=== PATIENT | female | born 1970 | race Caucasian/White ===

== ENCOUNTER 2016-05-26 20:33 | Inpatient (IN) | payer OTHER ==
[~2016-05-26] VITALS: Ht 175.3 cm; Wt 119.9 kg
[2016-05-26 21:23] LABS: HEMOGLOBIN 11.9 gm/dl (12.3-15.3); RED BLOOD COUNT 4.33 M/UL (4.00-5.10); WHITE BLOOD COUNT 10.5 K/UL (4.5-11.0)
[2016-05-27] MEDS ORDERED: HYDROCHLOROTHIA25 MG PO (02:22)
[2016-05-27] MEDS ORDERED: SINGULAIR10 MG PO (02:23)
[2016-05-27] MEDS ORDERED: CETIRIZINE HCL10 MG PO (02:23)
[2016-05-27] MEDS ORDERED: ALBUTEROL2.5 MG/3 M NEB (02:24)
[2016-05-27] MEDS ORDERED: ATROVENT INH S2.5 ML NEB (02:25)
[2016-05-27] MEDS ORDERED: PROVENTIL HFA 61 INH INH (02:26)
[2016-05-27] MEDS ORDERED: AMLODIPINE BESY10 MG PO (02:26)
[2016-05-27] MEDS ORDERED: BRILINTA90 MG PO (02:27)
[2016-05-27] MEDS ORDERED: DEXILANT60 MG PO (02:28)
[2016-05-27] MEDS ORDERED: RANITIDINE HCL300 MG PO (02:28)
[2016-05-27] MEDS ORDERED: LIPITOR TAB 2020 MG PO (02:28)
[2016-05-27 08:48] LABS: HEMOGLOBIN 10.1 gm/dl (12.3-15.3)
[2016-05-27 08:52] LABS: RED BLOOD COUNT 3.8 M/UL (4.00-5.10); WHITE BLOOD COUNT 7.3 K/UL (4.5-11.0)
[2016-05-28 07:06] LABS: HEMOGLOBIN 9.3 gm/dl (12.3-15.3); RED BLOOD COUNT 3.45 M/UL (4.00-5.10)
[2016-05-28 07:09] LABS: WHITE BLOOD COUNT 4.7 K/UL (4.5-11.0)
[2016-05-28 07:21] LABS: BUN/CREATININE RATIO 10 (0-10)
[2016-05-28] MEDS ORDERED: ASPIR 8181 MG PO (12:42)
[2016-05-28] MEDS ORDERED: PROTONIX 40 MG40 M1 PO (12:45)
[2016-05-28] MEDS ORDERED: PEPCID40 MG PO (12:45)
[2016-05-28] MEDS ORDERED: CEFUROXIME250 MG PO (12:47)
== END 2016-05-28 13:28 | disposition home or self-care (01) | DRG 690 ==
LOC: ER1 20:33 → M/S 23:30 → ZEROF 23:30 → M/S 05-27 01:24
PROVIDERS: Emergency Medicine; Physician Assistant; ADMIT Internal Medicine
DX: N10 Acute pyelonephritis (principal); E87.2 Acidosis; N17.9 Acute kidney failure, unspecified; E87.6 Hypokalemia; D64.9 Anemia, unspecified; J44.9 Chronic obstructive pulmonary disease, unspecified; I25.10 Atherosclerotic heart disease of native coronary artery without angina pectoris; E78.5 Hyperlipidemia, unspecified; K21.9 Gastro-esophageal reflux disease without esophagitis; K57.90 Diverticulosis of intestine, part unspecified, without perforation or abscess without bleeding; J30.9 Allergic rhinitis, unspecified; F17.200 Nicotine dependence, unspecified, uncomplicated; Z95.5 Presence of coronary angioplasty implant and graft; Z28.21 Immunization not carried out because of patient refusal; Z79.899 Other long term (current) drug therapy; Z88.8 Allergy status to other drugs, medicaments and biological substances; Z98.51 Tubal ligation status; Z98.890 Other specified postprocedural states; Z82.49 Family history of ischemic heart disease and other diseases of the circulatory system
CPT/HCPCS: 36415; 80048; 80053; 81001; 83605; 83690; 83735; 84132; 84703; 85025; 85027; 87040; 87086; 93005; 94640; 94664; 96361; 96365; 96375; 99284; G0378; J0696; J2270; J2405; J7030; J7050

== ENCOUNTER → 2016-06-13 | Outpatient (CLI) | payer OTHER ==
[~2016-06-13] MED LIST: ALBUTEROL2.5 MG/3 M NEB; AMLODIPINE BESY10 MG PO; ASPIR 8181 MG PO; ATROVENT INH S2.5 ML NEB; BRILINTA90 MG PO; CEFUROXIME250 MG PO; CETIRIZINE HCL10 MG PO; DEXILANT60 MG PO; HYDROCHLOROTHIA25 MG PO; LIPITOR TAB 2020 MG PO; NITROSTAT0.4 MG SL; PEPCID40 MG PO; PROTONIX 40 MG40 M1 PO; PROVENTIL HFA 61 INH INH; RANITIDINE HCL300 MG PO; SINGULAIR10 MG PO; VITAMIN D 11000 UNIT PO; ZANTAC150 MG PO
== END ==
LOC: HEART 5 07:07
DX: I25.10 Atherosclerotic heart disease of native coronary artery without angina pectoris (principal); R07.9 Chest pain, unspecified; E78.00 Pure hypercholesterolemia, unspecified; I10 Essential (primary) hypertension; R06.02 Shortness of breath
CPT/HCPCS: 78452; A9502

== ENCOUNTER → 2016-07-05 | Outpatient (CLI) | payer OTHER ==
[2016-07-05 10:24] LABS: HEMOGLOBIN 12.5 gm/dl (12.3-15.3); RED BLOOD COUNT 4.57 M/UL (4.00-5.10); WHITE BLOOD COUNT 8.4 K/UL (4.5-11.0)
== END ==
LOC: LAB 09:40
PROVIDERS: Internal Medicine Interventional Cardiology
DX: Z01.818 Encounter for other preprocedural examination (principal)
CPT/HCPCS: 36415; 80048; 85025; 85610; 85730; 93005

== ENCOUNTER 2016-07-06 07:04 | Outpatient (CLI) | payer OTHER ==
[~2016-07-06] VITALS: Ht 172.7 cm; Wt 112.9 kg
[~2016-07-06 07:04] MED LIST changes: -NITROSTAT0.4 MG SL; -VITAMIN D 11000 UNIT PO; -ZANTAC150 MG PO
[2016-07-06] MEDS ORDERED: NITROSTAT0.4 MG SL (08:06)
[2016-07-06] MEDS ORDERED: SINGULAIR10 MG PO (08:06)
[2016-07-06] MEDS ORDERED: ZANTAC150 MG PO (13:27)
[2016-07-06] MEDS ORDERED: VITAMIN D 11000 UNIT PO (13:28)
--- NOTE | 2016-07-06 18:16 | NUR ---
1315 RECEIVED TO 2110 FROM [employer]
--- NOTE | 2016-07-06 18:41 | NUR ---
1538 RIGHT GROIN SHEATH PULLED BY JANET RYDER RN
[2016-07-07 04:18] LABS: HEMOGLOBIN 11.4 gm/dl (12.3-15.3); RED BLOOD COUNT 4.25 M/UL (4.00-5.10); WHITE BLOOD COUNT 8.3 K/UL (4.5-11.0)
[2016-07-07 04:34] LABS: BUN/CREATININE RATIO 17 (0-10)
== END 2016-07-07 10:40 | disposition home or self-care (01) ==
LOC: CATH 07:04 → PROG CARE 13:31 → CATH 13:31 → PROG CARE 13:32 → CATH 07-07 10:40 → PROG CARE 07-07 10:40
PROVIDERS: Internal Medicine Interventional Cardiology
PROC: 027034Z Dilation of Coronary Artery, One Artery with Drug-eluting Intraluminal Device, Percutaneous Approach (ICD-10-PCS; principal; 2016-07-06)
PROC: 4A023N7 Measurement of Cardiac Sampling and Pressure, Left Heart, Percutaneous Approach (ICD-10-PCS; 2016-07-06)
PROC: B2111ZZ Fluoroscopy of Multiple Coronary Arteries using Low Osmolar Contrast (ICD-10-PCS; 2016-07-06)
PROC: B2131ZZ Fluoroscopy of Multiple Coronary Artery Bypass Grafts using Low Osmolar Contrast (ICD-10-PCS; 2016-07-06)
DX: I25.119 Atherosclerotic heart disease of native coronary artery with unspecified angina pectoris (principal); I10 Essential (primary) hypertension; Z87.891 Personal history of nicotine dependence; E78.5 Hyperlipidemia, unspecified; E66.9 Obesity, unspecified; Z68.37 Body mass index [BMI] 37.0-37.9, adult; J44.9 Chronic obstructive pulmonary disease, unspecified
CPT/HCPCS: 36415; 80048; 82962; 85027; 85347; 93571; 94664; C1725; C1769; C1874; C1887; C9600; J0153; J0583; J1644; J2250; J3010; J7030; Q0163; Q9963

== ENCOUNTER → 2020-04-08 | Outpatient (CLI) | payer OTHER ==
[~2020-04-08] MED LIST changes: +AMLODIPINE BESYL5 MG PO; +BREO ELLIPTA 11 EACH INH; +BREO ELLIPTA 200/25 INH; +COREG6.25 MG PO; +DESYREL 50 MG T50 MG PO; +IMDUR ER TAB 3030 MG PO; +IPRAT-ALBUT 0.5-3 ML INH; +K-DUR TAB 20 M20 MEQ PO; +NITROSTAT0.4 MG SL; +OXYGEN INH; +PRILOSEC OTC20 MG PO; +PRINIVIL20 MG PO; +PROAIR HFA8.5 GM INH; +TOPROL XL25 MG PO; +TYLENOL 325MG325 MG PO; +VITAMIN D 11000 UNIT PO; +ZANTAC150 MG PO; +ZANTAC300 MG PO; +ZESTRIL 40 MG T40 MG PO; +ZOFRAN ODT 4 MG4 MG SL; +ZOFRAN ODT4 MG PO; +[UNRECOGNIZED DRUG - SUPPLY]
== END ==
LOC: HEART 5 13:59
DX: R55 Syncope and collapse (principal); R00.2 Palpitations; R00.0 Tachycardia, unspecified

== ENCOUNTER → 2020-08-03 | Outpatient (CLI) | payer OTHER | LOC: ECHO 08:59 | DX: I20.9 Angina pectoris, unspecified (principal); I45.89 Other specified conduction disorders; I49.5 Sick sinus syndrome; I08.1 Rheumatic disorders of both mitral and tricuspid valves | CPT/HCPCS: ECHO; 93306; A9502 ==

== ENCOUNTER → 2020-08-12 | Outpatient (CLI) | payer OTHER | LOC: NM 08-03 10:00 | DX: I20.9 Angina pectoris, unspecified (principal); I49.5 Sick sinus syndrome; I45.89 Other specified conduction disorders; Q21.8 Other congenital malformations of cardiac septa | CPT/HCPCS: 78452; 93017; A9502; J2785 ==

== ENCOUNTER 2020-11-26 20:06 | Emergency (ER) | payer OTHER ==
[2020-11-26 20:37] LABS: HEMOGLOBIN 11.6 gm/dl (12.3-15.3); RED BLOOD COUNT 3.7 M/UL (4.00-5.10); WHITE BLOOD COUNT 4.4 K/UL (4.5-11.0)
[2020-11-26 21:13] LABS: BUN/CREATININE RATIO 18 (0-10)
== END 2020-11-26 23:10 | disposition home or self-care (01) ==
LOC: ER1 20:06
PROVIDERS: Family Medicine
DX: R55 Syncope and collapse (principal); R53.1 Weakness; I12.9 Hypertensive chronic kidney disease with stage 1 through stage 4 chronic kidney disease, or unspecified chronic kidney disease; N18.2 Chronic kidney disease, stage 2 (mild); E11.22 Type 2 diabetes mellitus with diabetic chronic kidney disease
CPT/HCPCS: 71045; 80053; 82550; 82553; 83874; 84484; 85025; 85610; 99284; J7030

== ENCOUNTER → 2021-05-03 | Outpatient (CLI) | payer OTHER ==
[2021-05-03 11:33] LABS: HEMOGLOBIN 10.9 gm/dl (12.3-15.3); RED BLOOD COUNT 3.77 M/UL (4.00-5.10)
[2021-05-04 10:16] LABS: RHEUMATOID ARTHRITIS FACTOR 11.2 IU/mL (<14.0)
== END ==
LOC: LAB 10:20
PROVIDERS: Nurse Practitioner Family
DX: R07.81 Pleurodynia (principal); D64.9 Anemia, unspecified; E78.2 Mixed hyperlipidemia; M25.50 Pain in unspecified joint; E16.2 Hypoglycemia, unspecified; K31.84 Gastroparesis; J90 Pleural effusion, not elsewhere classified
CPT/HCPCS: 36415; 71046; 80061; 82550; 82728; 83036; 83540; 83550; 84443; 85025; 85652; 86038; 86140; 86200; 86431

== ENCOUNTER → 2021-08-22 | Outpatient (CLI) | payer OTHER ==
[2021-08-22 15:32] LABS: HEMOGLOBIN 12.5 gm/dl (12.3-15.3); RED BLOOD COUNT 4.15 M/UL (4.00-5.10); WHITE BLOOD COUNT 5.7 K/UL (4.5-11.0)
[2021-08-22 15:54] LABS: BUN/CREATININE RATIO 21 (0-10)
== END ==
LOC: LAB 15:05
PROVIDERS: Nurse Practitioner Family
DX: M54.6 Pain in thoracic spine (principal); D50.9 Iron deficiency anemia, unspecified; M47.814 Spondylosis without myelopathy or radiculopathy, thoracic region
CPT/HCPCS: 36415; 72072; 80053; 82728; 83540; 83550; 85025